=== PATIENT | female | born 1940 | race Hispanic/Latino ===

== ENCOUNTER 2020-07-07 18:01 | Inpatient (IN) | payer OTHER ==
--- NOTE | 2020-07-07 19:13 | RAD REPORT ---
EXAM DESCRIPTION: RAD - Chest Single View - 07/07/2020 7:06 pm CLINICAL HISTORY: general weakness Chest pain. COMPARISON: No comparisons FINDINGS: Portable technique limits examination quality. The lungs are mildly emphysematous but grossly clear. The heart is upper limit normal in size. No dis placed fractures. IMPRESSION: No acute intrathoracic process suspected.
[2020-07-07 19:25] LABS: Absolute Lymphocytes (CBC) 1.5 K/uL (0.7-4.9); Basophils % 1.1 % (0-1.3); Hematocrit 36.4 % (36.0-45.0); Lymphocytes % 20.9 % (15.3-44.8); MPV 10.7 fL (7.6-11.3); RBC Red Blood Cell Count 4.18 M/uL (3.86-4.86)
[2020-07-07 19:35] LABS: Protime INR 1.03
[2020-07-07] MEDS ORDERED: NA CHLORIDE 0.9% 250 ML ONE ×2 (19:37→21:08)
[2020-07-07 19:47] LABS: ALT/SGPT 18 U/L (12-78); AST/SGOT 24 U/L (15-37); Albumin 3.9 g/dL (3.4-5.0); Alkaline Phosphatase 33 U/L (45-117); BUN Blood Urea Nitrogen 46 mg/dL (7-18); Bicarbonate 22 mmol/L (21-32); Bilirubin Direct 0.2 mg/dL (0-0.2); Bilirubin Total 0.7 mg/dL (0.2-1.0); Glucose Level 125 mg/dL (74-106); Magnesium 1.7 mg/dL (1.8-2.4); Potassium 3.8 mmol/L (3.5-5.1); Protein, Total 7.7 g/dL (6.4-8.2); Sodium Level 136 mmol/L (136-145); Troponin (Emerg Dept Use Only) < 0.02 ng/mL (0.0-0.045)
--- NOTE | 2020-07-07 20:32 | RAD REPORT ---
EXAM DESCRIPTION: CT - Head Brain Wo Cont - 07/07/2020 8:24 pm CLINICAL HISTORY: general weakness Headache, drowsiness COMPARISON: No comparisons TECHNIQUE: All CT scans are performed using dose optimization technique as appropriate and may inclu de automated exposure control or mA/KV adjustment according to patient size. FINDINGS: No intracranial hemorrhage, hydrocephalus or extra-axial fluid collection.Moderate general ized brain atrophy.No areas of brain edema or evidence of midline shift. The paranasal sinuses and mastoids are clear. The calvarium is intact. IMPRESSION: No acute intracranial abnormality.
--- NOTE | 2020-07-07 21:45 | ER ---
Nurse's Notes [facility] Name: Caitlyn Montgomery Age: 80 yrs Sex: Female : 1940 Arrival Date: 07/07/2020 Time: 18:02 Bed 13 Private MD: Diagnosis: Acute kidney failure;Weakness-general Presentation: 07/07 18:51 Chief complaint: Patient states: weakness for a few a days, son states that she has not em been eating and feeling nauseous, also reports low grade fever, denies pain. Coronavirus screen: Client denies travel out of the [place] in the last 14 days. Ebola Screen: Patient negative for fever greater than or equal to 101.5 degrees Fahrenheit, and additional compatible Ebola Virus Disease symptoms Patient denies exposure to infectious person. Patient denies travel to an Ebola-affected area in the 21 days before illness onset. No symptoms or risks identified at this time. Initial Sepsis Screen: Does the patient meet any 2 criteria? HR > 90 bpm. No. Patient's initial sepsis screen is negative. Does the patient have a suspected source of infection? No. Patient's initial sepsis screen is negative. Risk Assessment: Do you want to hurt yourself or someone else? Patient reports no desire to harm self or others. Onset of symptoms was June 2020. 18:51 Method Of Arrival: Wheelchair em 18:51 Acuity: RORO 3 em Historical: - Allergies: 18:57 Codeine; em - PMHx: 18:57 Hypertension; Diabetes - NIDDM; Osteoporosis; em - PSHx: 18:57 Appendectomy; Hysterectomy; em - Immunization history:: Adult Immunizations up to date. - Social history:: Smoking status: Patient denies any tobacco usage or history of. Screenin:10 Abuse screen: Denies threats or abuse. Nutritional screening: No deficits noted. jb4 Tuberculosis screening: No symptoms or risk factors identified. Fall Risk None identified. Assessment: 19:10 General: Appears in no apparent distress. comfortable, Behavior is calm, cooperative, jb4 appropriate for age. Pain: Denies pain. Neuro: Level of Consciousness is awake, alert, obeys commands, Oriented to person, place, time, situation. Cardiovascular: Patient's skin is warm and dry. Respiratory: Airway is patent Respiratory effort is even, unlabored, Respiratory pattern is regular, symmetrical. GI: No signs and/or symptoms were reported involving the gastrointestinal system. : No signs and/or symptoms were reported regarding the genitourinary system. EENT: No signs and/or symptoms were reported regarding the EENT system. Derm: No signs and/or symptoms reported regarding the dermatologic system. Musculoskeletal: Circulation, motion, and sensation intact. Range of motion: intact in all extremities. 20:15 Reassessment: Patient appears in no apparent distress at this time. Patient and/or jb4 family updated on plan of care and expected duration. Pain level reassessed. Patient is alert, oriented x 3, equal unlabored respirations, skin warm/dry/pink. 21:15 Reassessment: Patient appears in no apparent distress at this time. Patient and/or jb4 family updated on plan of care and expected duration. Pain level reassessed. Patient is alert, oriented x 3, equal unlabored respirations, skin warm/dry/pink. 07/08 00:09 Reassessment: Patient appears in no apparent distress at this time. Patient and/or jb4 family updated on plan of care and expected duration. Pain level reassessed. Patient is alert, oriented x 3, equal unlabored respirations, skin warm/dry/pink. Vital Signs: 07/07 18:51 BP 150 / 70; Pulse 91; Resp 18; Temp 97.5; Pulse Ox 100% on R/A; Pain 0/10; em 20:00 BP 122 / 53; Pulse 82; Resp 16; Pulse Ox 100% on R/A; jb4 21:00 BP 126 / 58; Pulse 81; Resp 16; Pulse Ox 100% on R/A; jb4 22:00 BP 131 / 76; Pulse 79; Resp 18; Pulse Ox 100% on R/A; jb4 23:00 BP 113 / 54; Pulse 82; Resp 19; Pulse Ox 100% on R/A; jb4 07/08 00:00 BP 118 / 75; Pulse 77; Resp 15; Pulse Ox 100% on R/A; jb4 NIH Stroke Scale Scores: 07/07 19:10 NIHSS Score: 0 cp ED Course: 18:02 Patient arrived in ED. ds1 18:28 Ajith Webb PA is PHCP. cp 18:28 James Church MD is Attending Physician. cp 18:46 Meghan Howard, RN is Primary Nurse. ll1 18:55 Triage completed. em 18:57 Arm band placed on. em 19:06 XRAY Chest (1 view) In Process Unspecified. EDMS 19:10 Patient has correct armband on for positive identification. Placed in gown. Bed in low jb4 position. Call light in reach. Side rails up X 1. mercerizing range controller on. Pulse ox on. NIBP on. 19:10 Initial lab(s) drawn, by me, sent to lab. Inserted saline lock: 18 gauge in right jb4 antecubital area, using aseptic technique. Blood collected. 19:14 Jamal Dockery, RN is Primary Nurse. jb4 20:24 CT Head Brain wo Cont In Process Unspecified. EDMS 21:43 Aly Gamboa MD is Hospitalizing Provider. cp 21:46 Urine collected: clean catch specimen, clear, caren colored, Amount Voided: 100mL. jp3 22:47 US Rp Exam Complete In Process Unspecified. EDMS 23:22 No provider procedures requiring assistance completed. Patient admitted, IV remains in jb4 place. Administered Medications: 19:30 Drug: NS 0.9% 250 ml Route: IV; Rate: bolus; Site: right antecubital; jb4 20:00 Follow up: Response: No adverse reaction; IV Status: Completed infusion jb4 20:56 Drug: NS 0.9% 250 ml Route: IV; Rate: bolus; Site: right antecubital; jb4 22:33 Drug: Magnesium Sulfate 1 grams Route: IVPB; Infused Over: 1 hrs; Site: right jb4 antecubital; Outcome: 21:44 Decision to Hospitalize by Provider. cp 23:22 Admitted to Med/surg accompanied by nurse, via stretcher, room 229, with chart, Report jb4 called to ALBA Joshi 23:22 Condition: stable 23:22 Discharge instructions given to patient, family, Instructed on the need for admit, Demonstrated understanding of instructions. 07/08 00:09 Patient left the ED. jb4 NIH Stroke Scale - NIH Stroke Score Date: 07/07/2020 Time: 19:10 Total Score = 0 1a. Level of Consciousness (LOC) - 0(Alert) 1b. Level of Consciousness (LOC) (Year \T\ Age) - 0(Both) 1c. LOC Commands (Open \T\ Closes Eyes/Cell Operator) - 0(Both) 2. Best Gaze (Lateral Gaze Paresis) - 0(Normal) 3. Visual Field Loss - 0(No visual loss) 4. Facial Palsy - 0(Normal) 5a. Left Arm: Motor (10-second hold) - 0(No drift) 5b. Right Arm: Motor (10-second hold) - 0(No drift) 6a. Left Leg: Motor (5-second hold - always test supine) - 0(No drift) 6b. Right Leg: Motor (5-second hold - always test supine) - 0(No drift) 7. Limb Ataxia (finger/nose \T\ heel/jiménez - test with eyes open) - 0(Absent) 8. Sensory Loss (pinprick arms/legs/face) - 0(Normal) 9. Best Language: Aphasia (description/naming/reading) - 0(No aphasia) 10. Dysarthria (speech clarity - read or repeat words) - 0(Normal) 11. Extinction and Inattention (visual/tactile/auditory/spatial/personal) - 0(No abnormality) Initials: cp Signatures: Dispatcher [employer] Moreno Urias, RN RN Christina Huff ds1 Ajith Webb PA PA cp Jamal Dockery, RN RN jb4 Artem John jp3 Meghan Howard, RN RN ll1
--- NOTE | 2020-07-07 21:45 | EDPHYS ---
Physician Documentation [facility] Name: Caitlyn Montgomery Age: 80 yrs Sex: Female : 1940 Arrival Date: 07/07/2020 Time: 18:02 Bed 13 Private MD: ED Physician James Church HPI: 07/07 19:00 This 80 yrs old Female presents to ER via Wheelchair with complaints of cp Weakness. 19:00 The patient presents to the emergency department with weakness of the entire body, cp generalized weakness, that is mild. Onset: The symptoms/episode began/occurred gradually. 19:00 Associated signs and symptoms: Pertinent negatives: altered mental status, fever, cp headache, neck stiffness, syncope, visual field changes. Patient's baseline: Neuro: alert and fully oriented, Motor: no deficits, Ambulation: walks without assistance, Speech: normal. Current symptoms: general weakness. Historical: - Allergies: 18:57 Codeine; em - PMHx: 18:57 Hypertension; Diabetes - NIDDM; Osteoporosis; em - PSHx: 18:57 Appendectomy; Hysterectomy; em - Immunization history:: Adult Immunizations up to date. - Social history:: Smoking status: Patient denies any tobacco usage or history of. ROS: 19:05 Constitutional: Negative for body aches, chills, fever. cp 19:05 Eyes: Negative for injury, pain, redness, and discharge. cp Exam: 19:10 Constitutional: The patient appears in no acute distress, alert, awake, cp non-diaphoretic, non-toxic, well developed, well nourished. 19:10 Head/Face: Normocephalic, atraumatic. cp 19:10 Eyes: Periorbital structures: appear normal, Pupils: equal, round, and reactive to light and accomodation, Extraocular movements: intact throughout, Conjunctiva: normal, no exudate, no injection, Sclera: no appreciated abnormality, Lids and lashes: appear normal, bilaterally. 19:10 ENT: External ear(s): are unremarkable, Nose: is normal, Mouth: Lips: moist, Oral mucosa: moist, Posterior pharynx: Airway: no evidence of obstruction, patent. 19:10 Neck: ROM/movement: is normal, is supple, without pain, no range of motions limitations. 19:10 Chest/axilla: Inspection: normal, Palpation: is normal, no crepitus, no tenderness. 19:10 Cardiovascular: Rate: normal, Rhythm: regular, Edema: is not appreciated, JVD: is not appreciated. 19:10 Respiratory: the patient does not display signs of respiratory distress, Respirations: normal, no use of accessory muscles, no retractions, labored breathing, is not present, Breath sounds: are clear throughout, no decreased breath sounds, no stridor, no wheezing. 19:10 Abdomen/GI: Inspection: abdomen appears normal, Palpation: abdomen is soft and non-tender, in all quadrants. 19:10 Back: pain, is absent, ROM is normal. 19:10 Skin: no rash present. 19:10 Neuro: Orientation: to person, place \T\ time. Mentation: is normal, Cerebellar function: Romberg testing is negative, normal finger to nose testing, Motor: moves all fours, strength is normal, Sensation: is normal. 19:40 ECG was reviewed by the Attending Physician. cp Vital Signs: 18:51 BP 150 / 70; Pulse 91; Resp 18; Temp 97.5; Pulse Ox 100% on R/A; Pain 0/10; em 20:00 BP 122 / 53; Pulse 82; Resp 16; Pulse Ox 100% on R/A; jb4 21:00 BP 126 / 58; Pulse 81; Resp 16; Pulse Ox 100% on R/A; jb4 22:00 BP 131 / 76; Pulse 79; Resp 18; Pulse Ox 100% on R/A; jb4 23:00 BP 113 / 54; Pulse 82; Resp 19; Pulse Ox 100% on R/A; jb4 07/08 00:00 BP 118 / 75; Pulse 77; Resp 15; Pulse Ox 100% on R/A; jb4 NIH Stroke Scale Scores: 07/07 19:10 NIHSS Score: 0 cp MDM: 18:47 Patient medically screened. cp 21:30 Data reviewed: vital signs, nurses notes, lab test result(s), EKG, radiologic studies, cp CT scan, plain films, and as a result, I will admit patient. 21:30 Test interpretation: by ED physician or midlevel provider: ECG. Counseling: I had a cp detailed discussion with the patient and/or guardian regarding: the historical points, exam findings, and any diagnostic results supporting the discharge/admit diagnosis, lab results, radiology results, the need for further work-up and treatment in the hospital. Response to treatment: the patient's symptoms have mildly improved after treatment. 21:40 Physician consultation: Aly Gamboa MD was called at 21:40, was contacted at 21:40, cp regarding admission, to the telemetry unit. patient's condition. 07/07 18:49 Order name: Basic Metabolic Panel; Complete Time: 20:23 cp 07/07 20:23 Interpretation: Normal except: GLUC 125; BUN 46; CRE 3.18; GFR 14. cp 07/07 18:49 Order name: CBC with Diff; Complete Time: 20:23 cp 07/07 18:49 Order name: LFT's; Complete Time: 20:23 cp 07/07 18:49 Order name: Magnesium; Complete Time: 20:23 cp 07/07 18:49 Order name: PT-INR; Complete Time: 20:23 cp 07/07 18:49 Order name: Troponin (emerg Dept Use Only); Complete Time: 20:23 cp 07/07 18:49 Order name: XRAY Chest (1 view); Complete Time: 20:23 cp 07/07 18:49 Order name: Urine Microscopic Only; Complete Time: 22:01 cp 07/07 19:25 Order name: Glucose, Ancillary Testing; Complete Time: 20:23 EDMS 07/07 21:54 Order name: Urine Dipstick--Ancillary (enter results); Complete Time: 22:01 mw2 07/07 22:08 Order name: Basic Metabolic Panel EDMS 07/07 22:08 Order name: Basic Metabolic Panel EDMS 07/07 22:08 Order name: CBC with Automated Diff EDMS 07/07 22:08 Order name: CBC with Automated Diff EDMS 07/07 18:49 Order name: EKG; Complete Time: 18:50 cp 07/07 18:49 Order name: Cardiac monitoring; Complete Time: 19:15 cp 07/07 18:49 Order name: EKG - Nurse/Tech; Complete Time: 19:36 cp 07/07 18:49 Order name: IV Saline Lock; Complete Time: 19:15 cp 07/07 18:49 Order name: Labs collected and sent; Complete Time: 19:15 cp 07/07 18:49 Order name: O2 Per Protocol; Complete Time: 19:15 cp 07/07 18:49 Order name: O2 Sat Monitoring; Complete Time: 19:15 cp 07/07 18:49 Order name: Urine Dipstick-Ancillary (obtain specimen); Complete Time: 21:43 cp 07/07 19:17 Order name: CT Head Brain wo Cont; Complete Time: 20:39 cp 07/07 20:39 Interpretation: Report reviewed. cp 07/07 21:43 Order name: US Rp Exam Complete cp 07/07 22:08 Order name: Consistent Carb (ADA) 1800 Dusty EDMS EC:40 Rate is 86 beats/min. Rhythm is regular. CA interval is normal. QRS interval is normal. cp QT interval is normal. T waves are Inverted in lead V3. Interpreted by me. Reviewed by me. Administered Medications: 19:30 Drug: NS 0.9% 250 ml Route: IV; Rate: bolus; Site: right antecubital; jb4 20:00 Follow up: Response: No adverse reaction; IV Status: Completed infusion jb4 20:56 Drug: NS 0.9% 250 ml Route: IV; Rate: bolus; Site: right antecubital; jb4 22:33 Drug: Magnesium Sulfate 1 grams Route: IVPB; Infused Over: 1 hrs; Site: right jb4 antecubital; Disposition: 07/08 07:38 Co-signature as Attending Physician, James Church MD. rn Disposition: 07/07/20 21:44 Hospitalization ordered by Aly Gamboa for Inpatient Admission. Preliminary diagnosis are Acute kidney failure, Weakness - general. - Bed requested for Telemetry/MedSurg (Inpatient). - Status is Inpatient Admission. jb4 - Condition is Stable. - Problem is new. - Symptoms have improved. NIH Stroke Scale - NIH Stroke Score Date: 07/07/2020 Time: 19:10 Total Score = 0 1a. Level of Consciousness (LOC) - 0(Alert) 1b. Level of Consciousness (LOC) (Year \T\ Age) - 0(Both) 1c. LOC Commands (Open \T\ Closes Eyes/Copyright Expert) - 0(Both) 2. Best Gaze (Lateral Gaze Paresis) - 0(Normal) 3. Visual Field Loss - 0(No visual loss) 4. Facial Palsy - 0(Normal) 5a. Left Arm: Motor (10-second hold) - 0(No drift) 5b. Right Arm: Motor (10-second hold) - 0(No drift) 6a. Left Leg: Motor (5-second hold - always test supine) - 0(No drift) 6b. Right Leg: Motor (5-second hold - always test supine) - 0(No drift) 7. Limb Ataxia (finger/nose \T\ heel/jiménez - test with eyes open) - 0(Absent) 8. Sensory Loss (pinprick arms/legs/face) - 0(Normal) 9. Best Language: Aphasia (description/naming/reading) - 0(No aphasia) 10. Dysarthria (speech clarity - read or repeat words) - 0(Normal) 11. Extinction and Inattention (visual/tactile/auditory/spatial/personal) - 0(No abnormality) Initials: cp Signatures: Dispatcher [employer] Moreno Urias, RN RN James Coon MD MD rn Page, Corey, PA PA cp Bryson, James, RN RN jb4 Tomasa Corona mw2 Corrections: (The following items were deleted from the chart) 07/07 21:48 21:44 Hospitalization Ordered by Aly Gamboa MD for Inpatient Admission. mw2 Preliminary diagnosis is Acute kidney failure; Weakness - general. Bed requested for Telemetry/MedSurg (Inpatient). Status is Inpatient Admission. Condition is Stable. Problem is new. Symptoms have improved. cp 07/08 00:09 07/07 21:48 07/07/2020 21:44 Hospitalization Ordered by Aly Gamboa MD for jb4 Inpatient Admission. Preliminary diagnosis is Acute kidney failure; Weakness - general. Bed requested for Telemetry/MedSurg (Inpatient). Status is Inpatient Admission. Condition is Stable. Problem is new. Symptoms have improved. mw2
[2020-07-07 21:57] LABS: Urine Bacteria <20 /HPF (<20); Urine RBC NONE SEEN /HPF (NONE SEEN)
[2020-07-07 21:58] LABS: Urine Blood NEGATIVE (NEG); Urine Glucose NEGATIVE (NEG); Urine Protein NEGATIVE (NEG)
[2020-07-07 21:58] LABS: Urine Culture Reflex Order NOT NEEDED
[2020-07-07] MEDS ORDERED: ONDANSETRON 4 MG/2 ML VIAL IV PRN (22:05)
[2020-07-07] MEDS ORDERED: MAGNESIUM SULFATE 1 gm IVPB 1 GM/100 ML BAG IV ONE (22:37)
[2020-07-08] MEDS: NA CHLORIDE 0.9% 1,000 ML IV SCH ×4 (00:43→20:44)
[2020-07-08 02:00] VITALS: BMI 22.7
[2020-07-08 06:10] LABS: Absolute Lymphocytes (CBC) 1.4 K/uL (0.7-4.9); Basophils % 1.4 % (0-1.3); Hematocrit 32.6 % (36.0-45.0); Lymphocytes % 25.7 % (15.3-44.8); MPV 10.5 fL (7.6-11.3)
[2020-07-08 06:19] LABS: Potassium 3.5 mmol/L (3.5-5.1)
--- NOTE | 2020-07-08 09:28 | RAD REPORT ---
EXAM DESCRIPTION: US - Renal Ultrasound-Complete - 07/07/2020 10:47 pm CLINICAL HISTORY: acute renal failure COMPARISON: No comparisons FINDINGS: The right kidney measures 11.2 x 5.7 x 4.3 cm. The left kidney measures 11.7 x 4.3 x 4.6 cm.. Cortical thickness normal with echogenicity within limits of normal. No hydronephrosis or suspic ious renal mass. Patient has several bilateral cystic masses in the renal hilar fat. These measure up to 14 mm in size have believed to be parapelvic cysts rather than dilated calices. No bladder wall thickening or mass. No intraluminal stone or mass. Preliminary findings were provided at the time of the study. IMPRESSION: No hydronephrosis or suspicious renal mass. Small bilateral parapelvic cysts are present.
[2020-07-08] MEDS ORDERED: PNEUMOCOCCAL VACCINE 0.5 ML IMVAC ONE (10:00)
--- NOTE | 2020-07-08 10:21 | P.HP ---
Certification for Inpatient Patient admitted to: Inpatient With expected LOS: >2 Midnights Practitioner: I am a practitioner with admitting privileges, knowledge of patient current condition, hospital course, and medical plan of care. Services: Services provided to patient in accordance with Admission requirements found in Title 42 Section 412.3 of the Code of Federal Regulations Patient History Date of Service: 07/08/20 Reason for admission: WEAKNESS History of Present Illness: MS. PATTON IS A DIABETIC WITH HTN WHO LIVES WITH AND HAS FOUR KIDS WHO ARE ADULTS. SHE HAD R SIDE LOWER BACK 4 SPOTS OF RASH, WENT TO CLINIC IN [place] AND GOT SOME MEDICINE FOR IT. SHE DOES NOT TAKE NSAIDS. HER HOME SITUATION IS PECULIAR. I ASKED HOW MUCH WATER SHE DRINKS AND SHE SAYS A CUP OF COFFEE IN AM AND THAT IS IT. SHE HAS NOT BEEN EATING SHE IS WEAK AND NOT ABLE TO COOK. I ASKED HER ABOUT . SHE SAYS HE COOKS FOR HIMSELF AND SHE IS SUPPOSED TO COOK FOR HER. SHE SAYS HE DOES NOT CARE TO FEED HER IF SHE IS NOT ABLE TO OR COOK FOR HER. SHE SAYS "I COOKED FOR ALL OF THEM FOR 40 YEARS AND HE CAN'T COOK FOR ME IF I CAN'T?". Allergies codeine Adverse Reaction (Verified 07/08/20 00:27) see comment - Past Medical/Surgical History Diabetic: Yes -: HTN -: HLD -: NIDDM -: osteoporosis -: Appy -: hysterectomy - Social History Smoking Status: Never smoker Alcohol use: No CD- Drugs: No Caffeine use: Yes Place of Residence: Home Review of Systems 10-point ROS is otherwise unremarkable General: Weakness, Malaise Physical Examination - Vital Signs Temperature: 98.1 F Blood Pressure: 145/64 Pulse: 74 Respirations: 18 Pulse Ox (%): 99 - Physical Exam General: Cachectic, Mild distress, Other (POOR SKIN TURGOR) HEENT: Atraumatic, PERRLA, Mucous membr. moist/pink, EOMI, Sclerae nonicteric Neck: Supple, 2+ carotid pulse no bruit, No LAD, Without JVD or thyroid abnormality Respiratory: Clear to auscultation bilaterally, Normal air movement Cardiovascular: Regular rate/rhythm, Normal S1 S2 Gastrointestinal: Normal bowel sounds, No tenderness Musculoskeletal: No tenderness Integumentary: No rashes Neurological: Normal gait, Normal speech, Normal strength at 5/5 x4 extr, Normal tone, Normal affect Lymphatics: No axilla or inguinal lymphadenopathy - Studies Laboratory Data (last 24 hrs) 07/07/20 19:10: PT 12.2, INR 1.03 07/07/20 19:10: WBC 7.3, Hgb 12.4, Hct 36.4, Plt Count 266 07/07/20 19:10: Sodium 136, Potassium 3.8, BUN 46 H, Creatinine 3.18 H, Glucose 125 H, Magnesium 1.7 L, Total Bilirubin 0.7, AST 24, ALT 18, Alkaline Phosphatase 33 L Assessment and Plan - Problems (Diagnosis) (1) Acute prerenal failure Current Visit: Yes Status: Acute Plan: THIS IS MAINLY FOR HAVING NO FLUID INTAKE FOR WEEKS. IV FLUIDS ARE ALREADY REDUCING CREATININE. SONOGRAM IS NEG. HER HOME SITUATION IS POOR. IF SHE CAN'T TAKE CARE OF HERSELF AND IF FAMILY DOES NOT HELP, SHE SHOULD BE IN NH. I ASKED IF SHE WANTS ME TO TALK TO HER KIDS AND SHE SAID NO. (2) Shingles Current Visit: Yes Status: Acute Plan: VERY MILD. I ASKED HER TO CALL OFFICE FIRST AND NOT GO TO NON DOCTOR CLINICS. - Advance Directives Does patient have a Living Will: No Does patient have a Durable POA for Healthcare: No
[2020-07-08 11:22] LABS: MPV 10.4 fL (7.6-11.3)
[2020-07-08 11:47] LABS: Platelet Estimate ADEQ
[2020-07-08] MEDS: DORZOLAMIDE 2% OPTH (10 ML) EACH EYE SCH (22:00)
[2020-07-09 05:45] LABS: Absolute Lymphocytes (CBC) 1.5 K/uL (0.7-4.9); Hematocrit 30.9 % (36.0-45.0); Lymphocytes % 28.3 % (15.3-44.8); MPV 10.1 fL (7.6-11.3); RBC Red Blood Cell Count 3.53 M/uL (3.86-4.86)
[2020-07-09] MEDS: NA CHLORIDE 0.9% 1,000 ML IV SCH ×2 (05:46→16:33)
[2020-07-09 05:57] LABS: Potassium 3.4 mmol/L (3.5-5.1)
[2020-07-09] MEDS: ENOXAPARIN 30 MG/0.3 ML SQ SCH (08:39)
[2020-07-09] MEDS: carvediloL 12.5 MG TAB PO SCH ×2 (08:39→19:49)
[2020-07-09] MEDS ORDERED: FENOFIBRATE 160 MG TAB PO SCH (09:00)
[2020-07-09] MEDS: DORZOLAMIDE 2% OPTH (10 ML) EACH EYE SCH ×2 (09:15→19:51)
[2020-07-09] MEDS: SIMETHICONE 125 MG TAB PO PRN (12:29)
[2020-07-09] MEDS: ACETAMINOPHEN 500 MG TAB PO PRN (19:50)
--- NOTE | 2020-07-09 20:54 | P.PN ---
Subjective Date of Service: 07/09/20 Chief Complaint: WEAKNESS Subjective: Ambulating, Improving SHE IS LOOKING A LOT BETTER. I CALLED AND TALKED TO HER SON ABOUT HER NOT GETTING FOOD AT HOME. Review of Systems 10-point ROS is otherwise unremarkable General: Weakness Physical Examination - Vital Signs Temperature: 97.8 F Blood Pressure: 124/55 Pulse: 73 Respirations: 17 Pulse Ox (%): 98 - Physical Exam General: Mild distress HEENT: Atraumatic, PERRLA, EOMI Neck: Supple, JVD not distended Respiratory: Clear to auscultation bilaterally, Normal air movement Cardiovascular: Regular rate/rhythm, Normal S1 S2 Gastrointestinal: Normal bowel sounds, No tenderness Musculoskeletal: No tenderness Integumentary: No rashes Neurological: Normal speech, Normal tone, Normal affect Lymphatics: No axilla or inguinal lymphadenopathy - Studies Medications List Reviewed: Yes Assessment And Plan - Current Problems (Diagnosis) (1) Acute prerenal failure Current Visit: Yes Status: Acute Plan: THIS IS MAINLY FOR HAVING NO FLUID INTAKE FOR WEEKS. IV FLUIDS ARE ALREADY REDUCING CREATININE. SONOGRAM IS NEG. HER HOME SITUATION IS POOR. IF SHE CAN'T TAKE CARE OF HERSELF AND IF FAMILY DOES NOT HELP, SHE SHOULD BE IN NH. I ASKED IF SHE WANTS ME TO TALK TO HER KIDS AND SHE SAID NO. CREATININE DOWN FROM 3.0 TO 1.55. MAY BE ABLE TO GO HOME IN AM. (2) Shingles Current Visit: Yes Status: Acute Plan: VERY MILD. I ASKED HER TO CALL OFFICE FIRST AND NOT GO TO NON DOCTOR CLINICS.
[2020-07-09] MEDS ORDERED: LATANOPROST 0.005% 2.5ML OPTH OPTH SCH (21:00)
[2020-07-10] MEDS: NA CHLORIDE 0.9% 1,000 ML IV SCH ×2 (00:48→11:11)
[2020-07-10] MEDS: ACETAMINOPHEN 500 MG TAB PO PRN (03:25)
[2020-07-10 04:39] LABS: Absolute Lymphocytes (CBC) 1.6 K/uL (0.7-4.9); Basophils % 1.4 % (0-1.3); Hematocrit 26.1 % (36.0-45.0); Lymphocytes % 28.6 % (15.3-44.8); MPV 10.4 fL (7.6-11.3); RBC Red Blood Cell Count 2.97 M/uL (3.86-4.86)
[2020-07-10 04:45] LABS: Potassium 3.1 mmol/L (3.5-5.1)
[2020-07-10] MEDS: carvediloL 12.5 MG TAB PO SCH (08:37)
[2020-07-10] MEDS: ENOXAPARIN 30 MG/0.3 ML SQ SCH (08:37)
[2020-07-10] MEDS ORDERED: dexAMETHasone 4 MG/ML VIAL IM ONE (09:27)
[2020-07-10] MEDS: DORZOLAMIDE 2% OPTH (10 ML) EACH EYE SCH (09:35)
[2020-07-10] MEDS: SIMETHICONE 125 MG TAB PO PRN (11:10)
[2020-07-10 12:19] VITALS: O2SAT 98
--- NOTE | 2020-07-10 12:54 | P.DS ---
Admission Date: 07/08/20 Discharge Date: 07/10/20 Disposition: DC HOME/HOME HEALTH CARE Discharge Condition: FAIR Reason for Admission: WEAKNESS - Problems (1) Acute prerenal failure Current Visit: Yes Status: Acute (2) Shingles Current Visit: Yes Status: Acute Brief History of Present Illness: MS. PATTON IS A DIABETIC WITH HTN WHO LIVES WITH AND HAS FOUR KIDS WHO ARE ADULTS. SHE HAD R SIDE LOWER BACK 4 SPOTS OF RASH, WENT TO CLINIC IN [place] AND GOT SOME MEDICINE FOR IT. SHE DOES NOT TAKE NSAIDS. HER HOME SITUATION IS PECULIAR. I ASKED HOW MUCH WATER SHE DRINKS AND SHE SAYS A CUP OF COFFEE IN AM AND THAT IS IT. SHE HAS NOT BEEN EATING SHE IS WEAK AND NOT A BLE TO COOK. I ASKED HER ABOUT . SHE SAYS HE COOKS FOR HIMSELF AND SHE IS SUPPOSED TO COOK FOR HER. SHE SAYS HE DOES NOT CARE TO FEED HER IF SHE IS NOT ABLE TO OR COOK FOR HER. SHE SAYS "I COOKED FOR ALL OF THEM FOR 40 YEARS AND HE CAN'T COOK FOR ME IF I CAN'T?". Hospital Course: MS PATTON GOT DEHYDRATED SHE DOES NOT GET FOOD ON TIME AND DOES NOT DRINK W ATER. WE HAVE ASKED ASSISTANT BOILER OPERATOR TO HELP. I TALKED TO SON ALSO. THEY WANT HOME HEALTH. THERE IS NO SKILL FOR [facility] APPROVED VISIT. SHE SPRAINED HER R KNEE IN THE BED. I ADVISED TRACEE DAY AND DEXAMETHASONE INJECTION IN ARM ONCE. Vital Signs/Physical Exam: Temp Pulse Resp BP Pulse Ox 97.8 F 53 18 121/58 L 98 07/10/20 08:00 07/10/20 08:37 07/10/20 08:00 07/10/20 08:37 07/10/20 08:00 General: Alert, In no apparent distress HEENT: Atraumatic, PERRLA, EOMI Neck: Supple, JVD not distended Respiratory: Clear to auscultation bilaterally, Normal air movement Cardiovascular: Regular rate/rhythm, Normal S1 S2 Gastrointestinal: Normal bowel sounds, No tenderness Musculoskeletal: No tenderness Integumentary: No rashes Neurological: Normal speech, Normal tone, Normal affect Lymphatics: No axilla or inguinal lymphadenopathy Laboratory Data at Discharge: WBC 5.4 K/uL (4.3-10.9) 07/10/20 04:09 Hgb 9.3 g/dL (12.0-15.0) L 07/10/20 04:09 Hct 26.1 % (36.0-45.0) L D 07/10/20 04:09 Plt Count 188 K/uL (152-406) 07/10/20 04:09 PT 12.2 SECONDS (9.5-12.5) 07/07/20 19:10 INR 1.03 07/07/20 19:10 Sodium 146 mmol/L (136-145) H 07/10/20 04:09 Potassium 3.1 mmol/L (3.5-5.1) L 07/10/20 04:09 BUN 21 mg/dL (7-18) H 07/10/20 04:09 Creatinine 0.96 mg/dL (0.55-1.3) 07/10/20 04:09 Glucose 104 mg/dL (74-106) 07/10/20 04:09 Magnesium 1.7 mg/dL (1.8-2.4) L 07/07/20 19:10 Total Bilirubin 0.7 mg/dL (0.2-1.0) 07/07/20 19:10 AST 24 U/L (15-37) 07/07/20 19:10 ALT 18 U/L (12-78) 07/07/20 19:10 Alkaline Phosphatase 33 U/L (45-117) L 07/07/20 19:10 Triglycerides 136 mg/dL (<150) 07/08/20 05:16 Cholesterol 134 mg/dL (<200) 07/08/20 05:16 HDL Cholesterol 44 mg/dL (40-60) 07/08/20 05:16 Cholesterol/HDL Ratio 3.05 07/08/20 05:16 Home Medications: Carvedilol [Coreg] 12.5 mg PO BID 07/08/20 Dorzolamide HCl/Pf [Dorzolamide 2% Eye Drop] 1 drop EACH EYE Q12H 07/08/20 Fenofibrate [Tricor*] 145 mg PO DAILY 07/08/20 Latanoprost/Pf [Latanoprost 0.005% Eye Drop] 1 drop EACH EYE BEDTIME 07/08/20 Losartan/Hydrochlorothiazide [Losartan-Hctz 100-12.5 mg Tab] 1 tab PO DAILY 07/08/20 Metformin HCl [Metformin HCl ER] 2 tab PO DAILY AT SUPPER 07/08/20 Followup: Aly Gamboa MD [Primary Care Provider] - (Call to make an appointment. )
[2020-07-10 12:59] VITALS: BP 135/83; TEMP 98.2
== END 2020-07-10 14:00 | disposition home health service (06) | DRG 683 ==
LOC: ER 18:01 → 2ND 07-08 00:03
PROVIDERS: ADMIT Internal Medicine; ATTEND Internal Medicine
DX: N17.9 Acute kidney failure, unspecified (principal); R64 Cachexia; I10 Essential (primary) hypertension; E86.0 Dehydration; E78.5 Hyperlipidemia, unspecified; E11.9 Type 2 diabetes mellitus without complications; B02.9 Zoster without complications; Z88.5 Allergy status to narcotic agent; Z90.49 Acquired absence of other specified parts of digestive tract; Z90.710 Acquired absence of both cervix and uterus; Z68.22 Body mass index [BMI] 22.0-22.9, adult; Z79.84 Long term (current) use of oral hypoglycemic drugs; Z20.828 Contact with and (suspected) exposure to other viral communicable diseases
CPT/HCPCS: 36415; 70450; 71045; 76770; 80048; 80061; 80076; 81003; 81015; 82947; 83036; 83735; 84484; 85025; 85049; 85610; 93005; 96365; 96375; 97116; 97161; 97530; 99285; J1100; J1650; J3475; J7030; J7050; U0002